=== PATIENT | female | born 1960 | race Caucasian/White ===

== ENCOUNTER 2017-02-10 17:01 | Emergency (ER) | payer OTHER ==
[~2017-02-10] VITALS: Ht 175.3 cm; Wt 83.7 kg
[~2017-02-10 17:01] MED LIST: PREMARIN0.625 MG PO; ZOLOFT50 MG PO
[2017-02-10 17:15] VITALS: BP 153/86
[2017-02-10] MEDS ORDERED: NAPROXEN SODIU550 M1 PO (19:06)
== END 2017-02-10 19:19 | disposition home or self-care (01) ==
LOC: EXP 17:01 → EME 17:01 → EXP 19:19
DX: M65.4 Radial styloid tenosynovitis [de Quervain] (principal)
CPT/HCPCS: 73110; 99281; 99283